=== PATIENT | female | born 1975 | race Two or more races ===

== ENCOUNTER 2018-12-26 14:14 | Emergency (ER) | payer OTHER ==
[~2018-12-26] VITALS: Ht 157.5 cm; Wt 65.8 kg
[2018-12-26] MEDS ORDERED: PRENATAL TABLE1 EAC2 PO (14:26)
[2018-12-26] MEDS ORDERED: Flonase 0.05% N16 GM (15:38)
== END 2018-12-26 15:50 | disposition home or self-care (01) ==
LOC: ER 14:14
DX: J00 Acute nasopharyngitis [common cold] (principal); Z88.0 Allergy status to penicillin
CPT/HCPCS: 87081; 87430; 99283

== ENCOUNTER 2018-12-29 10:11 | Emergency (ER) | payer OTHER ==
[~2018-12-29 10:11] MED LIST: Flonase 0.05% N16 GM; PRENATAL TABLE1 EAC2 PO
== END 2018-12-29 11:05 | disposition left against medical advice (07) ==
LOC: ER 10:11
DX: Z53.21 Procedure and treatment not carried out due to patient leaving prior to being seen by health care provider (principal)